=== PATIENT | male | born 1990 | race Caucasian/White ===

== ENCOUNTER 2021-03-26 06:51 | Emergency (ER) | payer OTHER ==
[2021-03-26 06:59] VITALS: BP 158/90; PULSE 83; RESP 20; TEMP 98.3
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
== END 2021-03-26 07:27 | disposition home or self-care (01) ==
LOC: EC 06:51
DX: S50.812A Abrasion of left forearm, initial encounter (principal); F90.9 Attention-deficit hyperactivity disorder, unspecified type; F41.9 Anxiety disorder, unspecified; F32.9 Major depressive disorder, single episode, unspecified; F17.200 Nicotine dependence, unspecified, uncomplicated; F12.90 Cannabis use, unspecified, uncomplicated; Z88.1 Allergy status to other antibiotic agents; V49.49XA Driver injured in collision with other motor vehicles in traffic accident, initial encounter; Y92.410 Unspecified street and highway as the place of occurrence of the external cause
CPT/HCPCS: 99284